=== PATIENT | female | born 1940 | race Caucasian/White ===

== ENCOUNTER 2017-01-07 17:20 | Emergency (ER) | payer MEDICARE ==
[2016-04-10 17:55] VITALS: BMI 23.8
[~2017-01-07 17:20] MED LIST: ADVAIR HFA 230-12 GM INH; ALENDRONATE SOD70 MG PO; ASPIRIN EC325 M1 PO; CATAPRES0.1 MG PO; IPRAT-ALBUT 0.5-3 ML UPD; NIFEDIPINE ER60 MG PO; PAXIL20 MG PO; PLAVIX75 MG; PLAVIX75 MG PO
[2017-01-07 18:28] LABS: BASOPHILS 0 % (0-2); EOSINOPHILS 0 % (0-7); HEMATOCRIT 36.6 % (36.0-48.0); HEMOGLOBIN 11.3 g/dL (12-16); IMMATURE GRANULOCYTES 0.2 % (0-5); LYMPHOCYTES 4.4 % (15-50); MCHC 30.9 g/dL (31.0-37.0); MCV 87.4 fL (80.0-100.0); MEAN PLATELET VOLUME 9.7 fL (7.4-10.4); MONOCYTES 4.4 % (2-11); PLATELET COUNT 183 10x3/uL (130-400); RBC 4.19 10x6/uL (4.00-5.40); RDW 13.1 % (11.5-14.5); WBC 9.6 10x3/uL (4.8-10.8)
[2017-01-07 18:42] LABS: ALBUMIN 4.1 g/dL (3.4-5.0); ALKALINE PHOSPHATASE 93 U/L (46-116); ALT (SGPT) 30 U/L (10-68); BILIRUBIN - TOTAL 0.49 mg/dL (0.2-1.3); CALC OSMOLALITY 279 mosm/kg (275-300); CALCIUM 8.7 mg/dL (8.5-10.1); CHLORIDE - SERUM 94 mmol/L (98-107); CREATININE - SERUM 0.7 mg/dL (0.6-1.3); GLUCOSE 123 mg/dL (74-106); POTASSIUM - SERUM 4.2 mmol/L (3.5-5.1); PROTEIN - SERUM 7.5 g/dL (6.4-8.2); SODIUM 139 mmol/L (136-145); UREA NITROGEN 15 mg/dL (7-18); eGFR NON AFRICAN AMERICAN 86 mL/min (90-120)
[2017-01-07 18:50] LABS: CARBON DIOXIDE 44.3 mmol/L (21.0-32.0)
[2017-01-07 19:44] LABS: APPEARANCE CLEAR (CLEAR); BILIRUBIN NEGATIVE (NEGATIVE); COLOR YELLOW (YELLOW); GLUCOSE NEGATIVE (NEGATIVE); KETONE SMALL mg/dL (NEGATIVE); LEUKOCYTE ESTERASE NEGATIVE (NEGATIVE); NITRITE NEGATIVE (NEGATIVE); PROTEIN 3+ mg/dL (NEGATIVE); UROBILINOGEN NORMAL (NORMAL)
[2017-01-07 19:48] LABS: RED CELLS - URINE 0-5 /hpf (0-5)
[2017-01-07 19:49] LABS: AMORPHOUS SEDIMENT <1+ /lpf (NONE SEEN); BACTERIA FEW /hpf (NONE SEEN); EPITHELIAL CELLS OCC /hpf (0-5); HYALINE CAST RARE /lpf (NONE SEEN)
== END 2017-01-07 21:33 | disposition home or self-care (01) ==
LOC: D.ER 17:20
PROVIDERS: Physician Assistant Medical
DX: J44.1 Chronic obstructive pulmonary disease with (acute) exacerbation (principal); N39.0 Urinary tract infection, site not specified; I10 Essential (primary) hypertension; R06.2 Wheezing; R05 Cough

== ENCOUNTER → 2017-01-10 12:18 | Outpatient (CLI) | payer MEDICARE ==
[2016-04-10 17:55] VITALS: BMI 23.8
== END | disposition home or self-care (01) ==
LOC: D.MRI 12:18
DX: R41.3 Other amnesia (principal)

== ENCOUNTER → 2017-02-05 07:50 | Outpatient (CLI) | payer MEDICARE ==
[2016-04-10 17:55] VITALS: BMI 23.8
--- NOTE | 2017-02-05 09:35 | NUR ---
0975 DAUGHTER VISITING, TIME FRAME FOR NEXT IMAGING GIVEN, CALL LIGHT AT BEDSIDE. TIME FRAME FOR RELEASE GIVEN. LINNETTE SERVED.
== END | disposition home or self-care (01) ==
LOC: D.NM 07:50
DX: R93.8 Abnormal findings on diagnostic imaging of other specified body structures (principal)

== ENCOUNTER 2017-05-13 20:59 | Inpatient (IN) | payer MEDICARE ==
[~2017-05-13] VITALS: Ht 157.5 cm; Wt 44.8 kg
[2017-05-13 21:50] LABS: BASOPHILS 0.1 % (0-2); EOSINOPHILS 0.3 % (0-7); HEMATOCRIT 35.2 % (36.0-48.0); HEMOGLOBIN 10.6 g/dL (12-16); IMMATURE GRANULOCYTES 0.1 % (0-5); LYMPHOCYTES 3.6 % (15-50); MCHC 30.1 g/dL (31.0-37.0); MCV 89.6 fL (80.0-100.0); MEAN PLATELET VOLUME 9.4 fL (7.4-10.4); MONOCYTES 3.9 % (2-11); RBC 3.93 10x6/uL (4.00-5.40); RDW 13.3 % (11.5-14.5); WBC 11.4 10x3/uL (4.8-10.8)
[2017-05-13 21:53] LABS: PLATELET COUNT 250 10x3/uL (130-400)
[2017-05-13 22:04] LABS: ALBUMIN 3.8 g/dL (3.4-5.0); ALKALINE PHOSPHATASE 121 U/L (46-116); ALT (SGPT) 29 U/L (10-68); CALC OSMOLALITY 275 mosm/kg (275-300); CALCIUM 8.8 mg/dL (8.5-10.1); CARBON DIOXIDE 35.5 mmol/L (21.0-32.0); CHLORIDE - SERUM 95 mmol/L (98-107); CREATININE - SERUM 0.6 mg/dL (0.6-1.3); GLUCOSE 130 mg/dL (74-106); POTASSIUM - SERUM 4.2 mmol/L (3.5-5.1); PROTEIN - SERUM 7.1 g/dL (6.4-8.2); SODIUM 137 mmol/L (136-145); UREA NITROGEN 13 mg/dL (7-18); eGFR NON AFRICAN AMERICAN > 90 mL/min (90-120)
[2017-05-14] VITALS (13 sets, daily range): BP systolic 80–202; BP diastolic 57–173; Ht 157.5 cm; Wt 44.8 kg
--- NOTE | 2017-05-14 02:18 | NUR ---
PT RESTING SOUNDLY WITHOUT C/O OR DISTRESS NOTED. CALL LIGHT WITHIN REACH. DENIES ANY C/O PAIN. WILL CONT TO MONITOR.
--- NOTE | 2017-05-14 08:27 | NUR ---
CLEANED OF URINE INCONT. AND REPOSITIONED FOR COMFORT. WILL CONT. PLAN OF CARE.
--- NOTE | 2017-05-14 10:44 | NUR ---
DR CORTES NURSE NOTIFIED OF FALL 2 WEEKS AGO. DAUGHTER STATES SHE IS UNABLE TO BEAR WEIGHT ON HER RIGHT HIP. WILL MONITOR.
--- NOTE | 2017-05-14 13:53 | NUR ---
SOB NOTED. 02 SAT 98%. RESP NOTIFIED FOR TX. WILL MONITOR.
--- NOTE | 2017-05-14 14:10 | NUR ---
UP GIVEN. 02 SAT DROPED TO 62% ON 2LNC. OXIMIZER AT 15L APPLIED. RAPID RESPONCE CALLED. B/P 211/110.
--- NOTE | 2017-05-14 14:33 | NUR ---
NONREBREATHER AT 100% WITH SATS 98%. BLOOD GAS DRAWN. DR. ROMO NOTIFIED. BIPAP ORDERED. EKG, LAB AND CXR DONE. WILL CONT. TO MONITOR.
--- NOTE | 2017-05-14 14:44 | NUR ---
REC,D PT TO ICU, ALL MONITORING EQUIPMENT ATTACHED.
--- NOTE | 2017-05-14 14:49 | NUR ---
TRANSFERED TO ICU. DR. KUO NOTIFIED.
[2017-05-14 15:03] LABS: BASOPHILS 0 % (0-2); EOSINOPHILS 0 % (0-7); HEMATOCRIT 36.3 % (36.0-48.0); HEMOGLOBIN 11.1 g/dL (12-16); IMMATURE GRANULOCYTES 0.3 % (0-5); LYMPHOCYTES 3.2 % (15-50); MCH 27.5 pg (26.0-34.0); MCHC 30.6 g/dL (31.0-37.0); MCV 89.9 fL (80.0-100.0); MEAN PLATELET VOLUME 9.9 fL (7.4-10.4); NEUTROPHILS 94.5 % (40-80); PLATELET COUNT 287 10x3/uL (130-400); RBC 4.04 10x6/uL (4.00-5.40); RDW 13.2 % (11.5-14.5)
[2017-05-14 15:06] LABS: WBC 15.2 10x3/uL (4.8-10.8)
[2017-05-14 15:23] LABS: PRO BNP 678 pg/mL (0-450); TROPONIN-I < 0.017 ng/mL (0.000-0.060)
--- NOTE | 2017-05-14 15:37 | NUR ---
BIPAP PLACED BY RT ON ARRIVAL, FAMILY AT BS, DR MUÑOZ AT BS AND SPOKE TO PT'S DAUGHTER AND GRANDAUGHTER. PT INC OF URINE. LINENS CHANGED AND SAUCEDO CATH PLACED. PT CAROLYN ACTIVITY POORLY. SOB, TACHYCARDIA. DENTURES TAKEN OUT BOTH LOWER AND UPPER AND LABLED AND DAUGHTER TOOK WITH HER. MOUTH CARE DONE. PT RESTING COMFORTABLY ON BIPAP. UA SENT TO LAB. VSS. PT DENIES PAIN.
[2017-05-14 16:04] LABS: APPEARANCE CLEAR (CLEAR); BILIRUBIN NEGATIVE (NEGATIVE); COLOR STRAW (YELLOW); GLUCOSE NEGATIVE (NEGATIVE); KETONE NEGATIVE (NEGATIVE); NITRITE NEGATIVE (NEGATIVE); PROTEIN NEGATIVE (NEGATIVE); SPECIFIC GRAVITY 1.015 (1.005-1.020); UROBILINOGEN NORMAL (NORMAL)
--- NOTE | 2017-05-14 17:02 | NUR ---
PT RESTING QUIETLY ON BIPAP. RESP EASY. VSS.
--- NOTE | 2017-05-14 19:20 | NUR ---
REPORT REC'D AND CARE ASSUMED, REC'D PT ON BIPAP @ 50%, AWAKENS TO VERBAL STIMULI, DISORIENTED TO TIME, REORIENTS EASILY, LEFT FOREARM PIV SALINE LOCKED, BBS WITH CRACKLES AND RALES, SAUCEDO PATENT DRAINING CLEAR YELLOW URINE, BILAT SCDS INTACT AND ON, PT DENIES NEEDS, SR UP X 2, CALL LIGHT IN REACH.
--- NOTE | 2017-05-14 20:45 | NUR ---
EVENING MEDS GIVEN PT REPOSITIONED IN BED FOR COMFORT.
--- NOTE | 2017-05-14 22:30 | NUR ---
PT HAD PULLED GOWN OFF AND PIV OUT, ARM CLEANED AND PRESSURE HELD, PARTIAL BATH AND LINEN CHANGE PROVIDED, VSS, WHEN ASKED ABOUT PULLING IV PT STATES " I DID?"
--- NOTE | 2017-05-14 23:12 | NUR ---
NEW 20GA PIV SITED TO L UPPER ARM X 1 MERYL GRACE.
--- NOTE | 2017-05-14 23:30 | NUR ---
REASSESSMENT COMPLETED, 20GAUGE TO LEFT UPPER ARM PLACED BY JEANNIE TEE ROUTINE LASIX GIVEN AT THIS TIME.
[2017-05-15] VITALS (24 sets, daily range): BP systolic 84–161; BP diastolic 52–102
--- NOTE | 2017-05-15 00:05 | NUR ---
ROUTINE MEDS GIVEN, PT RESTING EYES CLOSED, RESP EVEN AND UNLABORED ON BIPAP AT 18, O2 SAT 100%, WILL CONT TO MONITOR CLOSELY FOR CHANGES.
--- NOTE | 2017-05-15 02:00 | NUR ---
PT REPOSITIONED UP AND ONTO RIGHT SIDE SUPPORTED WITH PILLOW, VSS WILL CONT TO MONITOR FOR CHANGES.
--- NOTE | 2017-05-15 03:45 | NUR ---
RADIOLOGY AT BS, AM CXR DONE, PT REPOSITIONED ONTO BACK, REASSESSMENT COMPLETED, NO CHANGES FROM PREVIOUS ASSESSMENT, PT DENIES NEEDS, CONTINUES AT TIMES TO PULL AT GOWN AND TELEMETRY, WILL CONT TO MONITOR FOR CHANGES.
[2017-05-15 04:36] LABS: BASOPHILS 0 % (0-2); EOSINOPHILS 0 % (0-7); HEMATOCRIT 31.8 % (36.0-48.0); HEMOGLOBIN 9.6 g/dL (12-16); IMMATURE GRANULOCYTES 0.2 % (0-5); LYMPHOCYTES 2.5 % (15-50); MCH 27.6 pg (26.0-34.0); MCHC 30.2 g/dL (31.0-37.0); MCV 91.4 fL (80.0-100.0); MEAN PLATELET VOLUME 9.5 fL (7.4-10.4); MONOCYTES 1.2 % (2-11); NEUTROPHILS 96.1 % (40-80); RBC 3.48 10x6/uL (4.00-5.40); RDW 13.3 % (11.5-14.5)
[2017-05-15 04:37] LABS: WBC 10.6 10x3/uL (4.8-10.8)
[2017-05-15 04:38] LABS: PLATELET COUNT 215 10x3/uL (130-400)
[2017-05-15 04:56] LABS: ALBUMIN 3.3 g/dL (3.4-5.0); ALKALINE PHOSPHATASE 105 U/L (46-116); ALT (SGPT) 25 U/L (10-68); BILIRUBIN - TOTAL 0.22 mg/dL (0.2-1.3); CALC OSMOLALITY 279 mosm/kg (275-300); CALCIUM 8.5 mg/dL (8.5-10.1); CARBON DIOXIDE 39.5 mmol/L (21.0-32.0); CHLORIDE - SERUM 97 mmol/L (98-107); CREATININE - SERUM 0.7 mg/dL (0.6-1.3); GLUCOSE 140 mg/dL (74-106); PHOSPHOROUS 4.2 mg/dL (2.5-4.9); POTASSIUM - SERUM 4.5 mmol/L (3.5-5.1); PROTEIN - SERUM 6.6 g/dL (6.4-8.2); SODIUM 137 mmol/L (136-145); UREA NITROGEN 24 mg/dL (7-18); eGFR NON AFRICAN AMERICAN 86 mL/min (90-120)
--- NOTE | 2017-05-15 05:20 | NUR ---
I AND O COMPLETED, PT REPOSITIONED UP IN BED AND ONTO RIGHT SIDE SUPPORTED WITH PILLOWS, HEELS BRIDGED FOR COMFORT, DENIES FURTHER NEEDS.
--- NOTE | 2017-05-15 05:30 | NUR ---
RT AT BS BIPAP FIO2 DECREASED TO 40%, PT RESTING EYES CLOSED, O2 SAT 98%
--- NOTE | 2017-05-15 06:35 | NUR ---
AM MEDS GIVEN, NO VISITORS IN AT THIS TIME
--- NOTE | 2017-05-15 09:58 | NUR ---
ASSISTED PT WITH MEAL TRAY, BIPAP ON STAND BY AND 02 2LNC. PT DID SWALLOW W/O PROBLEMS, DRANK ENSURE AND ATE 50% OF HER MEAL. DAUGHTER AT BS.
--- NOTE | 2017-05-15 10:50 | NUR ---
PT PLACED BACK ON BIPAP AFTER BREAKFAST BY RT. PT CAROLYN WELL.
--- NOTE | 2017-05-15 15:23 | NUR ---
Sedated. No family present. Unable to assess dc plans/needs at this time.
--- NOTE | 2017-05-15 19:00 | NUR ---
REPORT RECEIVED. SHIF ASSESSMENT COMPLETED PER FLOW SHEET. PT LAYING IN BED AAOX4. ABLE TO FOLLOW COMMANDS. RADIAL AND PEDAL PULSES PALP. TELEMETRY MONITORING HR 84. 2 L O2 VIA NC. SAUCEDO CATHETER TO GRAVITY, SECURED, DRAINING CLEAR YELLOW URINE. BRUISES NOTED TO LT HIP AND ARMS. PT REPORTS SHE HAD A RECENT FALL. LT UPPER ARM PIV, SALINE LOCKED. SEE FLOW SHEET FOR COMPLETE ASSESSMENT. PT DODIE NEEDS AT THIS TIME. WILL CONTINUE TO MONITOR.
--- NOTE | 2017-05-15 19:20 | NUR ---
PT SCREAMING "HELP" SOON I WALKED IN ROOM, SHE STATED "HELP I CAN'T BRETHE" OXYGEN SATURATION DROPPED TO 88%. PT PUT ON BIPAP PER RESPIRATORY AND SAT PT UP IN BED. O2 SATURATION INCREASED TO 96%. STAYED WITH PT UNTIL SHE STATED SHE WAS OK AND HAD NO TROUBLE BREATHING. CALL LIGHT WITHIN REACH. BED IN LOWEST POSITION. WILL CONTINUE TO MONITOR.
--- NOTE | 2017-05-15 20:30 | NUR ---
DAUGHTER OLGA AND HER AT BEDSIDE. QUESTIONS ANSWERED.
--- NOTE | 2017-05-15 20:40 | NUR ---
PT SPA CONCIERGE LIGHT, AGGRAVATED AND VERBALLY ABUSIVE REQUESTING BIPAP OFF, EXPLAINED TO HER THE IMPORTANCE OF KEEPING HER BIPAP ON, SHE VERBALIZED UNDERSTANDING BUT STATED "I HAVE BEEN ON THIS THING FOR 4 HRS ALREADY AND I AM TIRED OF IT" TOOK BIPAP OFF AND PUT HER ON 2 L O2 VIA NC, O2 SATURATION IS AT 96%. TEACHING PROVIDED TO PT THAT IF O2 SATURATION DROPPED OR SHE HAD DIFFICULTY BREATHING, BIPAP WOULD NEED TO BE PUT BACK ON. PT VERBALIZED UNDERSTANDING AND IS NOW CALM AND COOPERATIVE. CALL LIGHT WITHIN REACH. WILL CONTINUE TO MONITOR.
--- NOTE | 2017-05-15 21:00 | NUR ---
PT LAYING IN BED AWAKE, NO DISTRESS NOTED. WILL CONTINUE TO MONITOR.
--- NOTE | 2017-05-15 23:05 | NUR ---
REASSESSMENT COMPLETED PER FLOW SHEE, SEE FOR DETAILS. NO ACUTE CHANGES NOTED. PT CALM AND COOPERATIVE AT THIS TIME. AAOX4. DENIES NEEDS. TEACHING PROVIDED ON SCHEDULED SURGERY TOMORROW AND THE NEED TO BE NPO AFTER MIDNIGHT. PT VERBALIZED UNDERSTANDING. DENIES NEEDS AT THIS TIME. CALL LIGHT WITHIN REACH. ROOM LIGHT AND TV ON PER REQUEST. WILL CONTINUE TO MONITOR.
[2017-05-16] VITALS (23 sets, daily range): BP systolic 103–188; BP diastolic 60–95
--- NOTE | 2017-05-16 01:00 | NUR ---
PT LAYING IN BED RESTING, WATCHING TV, DENIES NEEDS. WILL CONTINUE TO MONITOR.
--- NOTE | 2017-05-16 03:10 | NUR ---
REASSESSMENT COMPLETED PER FLOW SHEET, NO ACUTE CHANGES FROM PREVIOUS, SEE FLOW SHEET FOR DETAILS. PT DENIES NEEDS AT THIS TIME. PT IS CALM AND COOPERATIVE. CALL LIGHT WITHIN REACH. BED IN LOWEST POSITION. WILL CONTINUE TO MONITOR.
[2017-05-16 04:17] LABS: BASOPHILS 0 % (0-2); EOSINOPHILS 0 % (0-7); HEMATOCRIT 33.1 % (36.0-48.0); IMMATURE GRANULOCYTES 0.2 % (0-5); MCH 27.3 pg (26.0-34.0); MCHC 30.2 g/dL (31.0-37.0); MCV 90.4 fL (80.0-100.0); MEAN PLATELET VOLUME 9.8 fL (7.4-10.4); MONOCYTES 4.9 % (2-11); NEUTROPHILS 91.9 % (40-80); PLATELET COUNT 321 10x3/uL (130-400); RBC 3.66 10x6/uL (4.00-5.40); RDW 13.4 % (11.5-14.5); WBC 9.7 10x3/uL (4.8-10.8)
[2017-05-16 04:45] LABS: ALBUMIN 3.4 g/dL (3.4-5.0); ANION GAP 6.6 mmol/L (8-16); BILIRUBIN - TOTAL 0.15 mg/dL (0.2-1.3); CALCIUM 8.8 mg/dL (8.5-10.1); CARBON DIOXIDE 39.4 mmol/L (21.0-32.0); MAGNESIUM - SERUM 2.1 mg/dL (1.8-2.4); PROTEIN - SERUM 6.9 g/dL (6.4-8.2)
[2017-05-16 04:54] LABS: CREATININE - SERUM 0.9 mg/dL (0.6-1.3); PHOSPHOROUS 2.2 mg/dL (2.5-4.9)
--- NOTE | 2017-05-16 05:00 | NUR ---
PT RESTING IN BED, EYES CLOSED. NO ACUTE DISTRESS NOTED. WILL CONTINUE TO MONITOR.
--- NOTE | 2017-05-16 05:41 | NUR ---
MEDS ADMINISTERED PER EMAR, SEE FOR DETAILS. PT AWAKE WATCHING TV. DENIES NEEDS. WILL CONTINUE TO MONITOR. CALL LIGHT WITHIN REACH. BED IN LOWEST POSITION.
--- NOTE | 2017-05-16 07:57 | NUR ---
DR CRUZ HAS BEEN BY TO SEE PATIENT. WANTS ADDITIONAL CT OF HIP PERFORMED. MAY NEED TO CHANGE PROCEDURE FOR HIP. ASKS TO WAIT TO GET CONSENTS UNTIL HE SEES IMAGING. EXPLAINED TO HIM FAMILY CONCERNED ABOUT LEFT FOOT/ANKLE. HE EXAMINED THE PATIENT ANKLE AT THAT TIME. NO C/O PAIN, NO SWELLING, NO DIFFICULTY WITH RANGE OF MOTION.
--- NOTE | 2017-05-16 09:00 | NUR ---
PT ASSISTED ON TO BEDPAN. NEEDS TO HAVE BOWEL MOVEMENT.
--- NOTE | 2017-05-16 09:20 | NUR ---
FAMILY AT BEDSIDE. NO BOWEL MOVEMENT YET. DOES NOT WANT GARCIA MOVED.
--- NOTE | 2017-05-16 09:36 | NUR ---
PT CLEANED UP FROM LARGE BOWEL MOVEMENT. REPOSITIONED AND USED PILLOWS FOR PROPPING BETWEEN LEGS.
--- NOTE | 2017-05-16 09:47 | NUR ---
Nutrition follow-up: Pt is now NPO for surgery PO intake has been ~75% of meals +BM Wt: 104# Labs reviewed RDN following.
--- NOTE | 2017-05-16 12:47 | NUR ---
ANESTHESIA OVER TO SEE PATIENT. ASKED IF COULD HAVE BREATHING TREATMENT. SPOKE WITH DR MUÑOZ. REVIEWED TIME OF LAST TREATMENT. GIVES OK TO GIVE TREATMENT EARLY.
--- NOTE | 2017-05-16 13:08 | NUR ---
PT OFF UNIT TO Anthony
--- NOTE | 2017-05-16 17:05 | NUR ---
PT RETURNED TO ROOM FROM O.R. PT RESTING AT THIS TIME. PLACED ON MONITORING. TEMP 98.9. POSITIONED ON RIGHT SIDE, ICE TO LEFT HIP. DRESSING MARKED FOR BLEEDING.
--- NOTE | 2017-05-16 19:00 | NUR ---
REPORT RECEIVED, SHIFT ASSESSMENT COMPLETED PER FLOW SHEET, SEE FOR DETAILS. PT LAYING IN BED WATCHING TV. LT FOREARM PIV INFUSING NS AT 10 MLS/HR. SCD'S ON. ABLE TO FOLLOW COMMANDS. LT HIP DRESSINGS INTACT. DENIES NEEDS. CALL LIGHT WITHIN REACH. BED IN LOWEST POSITION. WILL CONTINUE TO MONITOR.
--- NOTE | 2017-05-16 19:00 | NUR ---
REPORT RECEIVED. SHIFT ASSESSMENT COMPLETED PER FLOW SHEET, SEE FOR DETAILS. PT LAYING IN BED RESTING. DRESSINGS NOTED TO LT HIP AND LT UPPER SIDE OF KNEE. TELEMETRY MONITORING HR 77. 3L O2 VIA NC. SAUCEDO CATHETER TO GRAVITY, SECURED, DRAINING YELLOW URINE. LT UPPER ARM PIV, SALINE LOCKED. RT HAND PIV, PATENT. SEE FLOW SHEET FOR DETAILS. BED IN LOWEST POSITION. CALL LIGHT WITHIN REACH. WILL CONTINUE TO MONITOR.
--- NOTE | 2017-05-16 20:30 | NUR ---
DAUGHTER AND HER AT BEDSIDE. QUESTIONS ANSWERED, UPDATE GIVEN.
--- NOTE | 2017-05-16 22:30 | NUR ---
DR. KUO CALLED FOR SBP 180. DR. KRAUSE IS [employer] LAW ASSOCIATE, WILL WAIT FOR CALL BACK.
--- NOTE | 2017-05-16 22:34 | NUR ---
DR. KRAUSE CALLED BACK, DISCUSSED BP CONCERNS. NEW ORDERS RECEIVED. SEE EMAR FOR DETAILS.
--- NOTE | 2017-05-16 22:41 | NUR ---
PHARMACY NOT HERE, UNABLE TO OBTAIN HYDRALAZINE. DIE FORGER CALLED, BUT PHONE LINE IS BUSY. WILL KEEP TRYING TO GET IN CONTACT.
--- NOTE | 2017-05-16 22:47 | NUR ---
[employer] NOTIFIED OF HYDRALAZINE NEED. WILL WAIT FOR AVAILABILITY.
--- NOTE | 2017-05-16 22:50 | NUR ---
PT PULLING BIPAP OFF, MOVING AROUND ATTEMPTING TO SIT UP IN BED, BLEEDING NOTED TO RT HAND PIV, IV REMOVED AND HAND PRESSURE APPLIED TO SITE, BLEEDING STOPPED SHORTLY AFTER AND DRESSING WAS PLACED AND TAPED. TEACHING PROVIDED ON THE NEED TO STAY ON BIPAP AND PT CALMED DOWN AFTER AND NO LONGER ATTEMPTED TO PULL ON BIPAP. COMPLETE BED BATH GIVEN. COMPLETE BED LINEN CHANGE. [facility] GOWN PROVIDED. IV FLUIDS CHANGED TO LT UPPER ARM PIV. PT REPOSITIONED FOR COMFORT. WILL CONTINUE TO MONITOR.
--- NOTE | 2017-05-16 23:05 | NUR ---
REASSESSMENT COMPLETED PER FLOW SHEET, SEE FOR DETAILS. WILL CONTINUE TO MONITOR.
[2017-05-17] VITALS (13 sets, daily range): BP systolic 103–163; BP diastolic 56–89
--- NOTE | 2017-05-17 00:47 | OP ---
PATIENT NAME: SAIDA BOLIVAR MEDICAL RECORD: [id number] :41 LOCATION:[facility] [id number] ADMISSION DATE:05/13/17 SURGEON: AMINTA CRUZ, DATE OF OPERATION: 05/16/2017 PREOPERATIVE DIAGNOSIS: Left hip intramedullary nailing. POSTOPERATIVE DIAGNOSIS: Left hip intertrochanteric fracture. INDICATIONS: Ms. Bolivar is a 76-year-old female who fell approximately 2 weeks ago and has not been bearing weight on her left leg. Once this was done, she has been staying with her daughter, she started to get short of breath as well, and she was brought to the hospital. X-rays and CT were done showing left intertrochanteric fracture is nondisplaced. There was some displacement of the greater trochanter, this was discussed with her family and need for operative fixation if she wanted to weightbear as the fracture could displace if she were to bear weight on it. They were in agreeance with the procedure. DESCRIPTION OF PROCEDURE: The patient was taken to the operative suite, laid in supine position, given 1 gram of Ancef. The timeout was performed, everyone was in agreement of correct side, correct patient, and correct procedure. The patient was then intubated and sedated and is moved over to the fracture table. The left leg was put in the fracture table boot and the right leg was taped to the same arm of the fracture table as the left leg with a pillow for padding. The other bony prominences were well padded. The left leg was then prepped and draped in sterile fashion. The procedure commenced first with the incision being made just proximal to the greater trochanter. Careful dissection was made down the greater trochanter and starting point was made. The entry wire was put in and then the entry reamer was used to open the trochanter and into the canal. Once this was done, reaming commenced up to a 12.5 and 11 nail was put in. We measured a 360 mm nail. After this was done, the nail was put into the patient and once in good position, the lag screw sleeve was put on the skin. An incision was made where the lag screw would go. The guide sleeve was then put up against the femur and a guidewire was used and put into the correct position into the femoral head. Once this was seen to be in good position, it was measured and seen to be a 95. It was then overdrilled and 95 lag screw was put in by 10.5 mm x 95 mm lag screw. This was an [employer] nail by [employer]. The anti-rotation screw was then placed as well and a 75 drill sleeve was used and measured to be 75 with a drill bit. The 75 screw was put in. Once this was done, the nail was locked proximally. The screws were locked into place and then distally, we got perfect circles and 1 distal screw was placed, size was a 42 mm x 5.0 screw placed in the distal hole. After this was done, x-rays were taken to confirm good nail placement. Both AP and lateral and the incisions were irrigated thoroughly with saline and the IT band was closed with 2 proximal incisions with #1 Vicryl and then the skin was closed with 2-0 Vicryl and 4-0 Monocryl was run on the skin. The distal incision was closed with 2-0 Vicryl and then 4-0 Monocryl in the skin. Adaptic, Telfa, and Tegaderms were then placed over each of the incisions. The patient was taken off the fracture table and taken to recovery. TRANSINT:[id number] Voice Confirmation ID: [id number] DOCUMENT ID: [id number] OPERATIVE REPORT [id number] SAIDA BOLIVAR MICHAEL D, DO at 0047 CC: [id number] DICTATION DATE: 05/16/17 1535 ASSOCIATE THEATRE PROFESSOR: 05/16/17 1703 ADM IN [facility] [address] [id number]
--- NOTE | 2017-05-17 01:00 | NUR ---
PT IS RESTING IN CALMLY IN BED ON BIPAP AT 30% WILL CONTINUE TO MONITOR.
--- NOTE | 2017-05-17 03:30 | NUR ---
REASSESSMENT COMPLETED PER FLOW SHEET, SEE FOR DETAILS. PT DENIES NEEDS. BED IN LOWEST POSITION. WILL CONTINUE TO MONITOR.
[2017-05-17 04:08] LABS: BASOPHILS 0 % (0-2); EOSINOPHILS 0 % (0-7); HEMATOCRIT 29.6 % (36.0-48.0); HEMOGLOBIN 8.9 g/dL (12-16); IMMATURE GRANULOCYTES 0.3 % (0-5); LYMPHOCYTES 2.5 % (15-50); MCH 27.4 pg (26.0-34.0); MCHC 30.1 g/dL (31.0-37.0); MCV 91.1 fL (80.0-100.0); NEUTROPHILS 94.2 % (40-80); PLATELET COUNT 301 10x3/uL (130-400); RBC 3.25 10x6/uL (4.00-5.40); RDW 13.5 % (11.5-14.5); WBC 11.4 10x3/uL (4.8-10.8)
[2017-05-17 04:32] LABS: ALBUMIN 3.2 g/dL (3.4-5.0); ANION GAP 7.6 mmol/L (8-16); BILIRUBIN - TOTAL 0.2 mg/dL (0.2-1.3); CALCIUM 8.1 mg/dL (8.5-10.1); CARBON DIOXIDE 38.1 mmol/L (21.0-32.0); PROTEIN - SERUM 6.1 g/dL (6.4-8.2)
[2017-05-17 04:34] LABS: POTASSIUM - SERUM 4.7 mmol/L (3.5-5.1)
--- NOTE | 2017-05-17 05:00 | NUR ---
PT RESTING IN BED, NO ACUTE DISTRESS NOTED AT THIS TIME. WILL CONTINUE TO MONITOR.
--- NOTE | 2017-05-17 07:00 | NUR ---
REPORT RECIEVED FROM OFF GOING NURSE. SEE ASSESSMENT IN FLOW SHEET. PT ALERT AND ORIENTED TO PERSON AND PLACE ONLY. LEFT HIP DRESSING C/D/I. DENIES PAIN VERBALLY. CALL LIGHT IN REACH. DR KUO AT BEDSIDE. NEW ORDRES FOR PT TO TRANSFER TO MED SURG. WILL CONT POC
--- NOTE | 2017-05-17 07:28 | NUR ---
Nutrition follow-up: Pt s/p hip repair 05/16 Diet: Regular as tolerated Wt: 98# Labs reviewed Will provide food choices with selective menus and honor food preferences. RDN will order Ensure BID.
--- NOTE | 2017-05-17 08:30 | NUR ---
DR CRUZ AT BED SIDE ASSESSED PT. NO NEW ORDERS. WILL CONT POC
--- NOTE | 2017-05-17 11:00 | NUR ---
PHYS THERP. ASSISTED PT WITH TRANSFER TO CHAIR. PT TOLERATED TRANSFER WELL. DENIES PAIN. UP IN CHAIR WATCHING TV. CALL LIGHT IN REACH. WAITING FOR ROOM ON MED SURG.
--- NOTE | 2017-05-17 12:30 | NUR ---
DORIAN RICO ASSISTED PT BACK INTO BED. VSS. WAITING FOR MED SURG ROOM.
[2017-05-17 15:05] LABS: HEMATOCRIT 28.2 % (36.0-48.0); HEMOGLOBIN 8.4 g/dL (12-16)
--- NOTE | 2017-05-17 15:30 | NUR ---
PT RESTING WATCHING TV WITH NO S/SX OF DISTRESS/DISOCMFORT NOTED. BREATHING NORMAL AND UNLABORD. DENIES PAIN. CALL LIGHT IN REACH. WILL CONT POC
--- NOTE | 2017-05-17 18:24 | NUR ---
PT PULLED OUT IV TO LEFT UPPER ARM. NEW 20 GAUGE IV STARTED IN LEFT LOWER ARM. PATENT. NO S/SSX OF INFILTRATION. THE IV THAT WAS PULLED OUT, THE CATHETER TIP IS INTACT.
--- NOTE | 2017-05-17 19:47 | NUR ---
REPORT GIVEN TO ON COMING RN. VSS WILL CONT POC.
--- NOTE | 2017-05-17 20:17 | NUR ---
FAMILY AT BEDSIDE, UPDATE GIVEN, QUESTIONS ANSWERED.
--- NOTE | 2017-05-17 21:00 | NUR ---
PT RESTING IN BED WATCHING TV. NO DISTRESS NOTED. DENIES NEEDS. WILL CONTINUE TO MONITOR.
--- NOTE | 2017-05-17 21:40 | NUR ---
RECEIVED REPORT. PT ARRIVED TO FLOOR FROM ICU. PT ON 3L/NC. EXP WHEEZES HEARD ON AUSCULTATION. COMPLETE ASSESSMENT PER FLOW-SHEET. PT SITTING UP IN BED EATING SNACK AND WATCHING TV. NO OTHER NEEDS. WILL CONTINUE TO MONITOR. BED LOW. CALL LIGHT IN REACH. BED ALARM ON.
--- NOTE | 2017-05-17 21:40 | NUR ---
REPORT CALLED TO MED SURGE UNIT NURSE FOR TRANSFER
--- NOTE | 2017-05-17 21:50 | NUR ---
PT TRANSFERRED TO MED SURG UNIT
[2017-05-18 04:00] VITALS: BP 137/57
[2017-05-18 04:04] LABS: BASOPHILS 0 % (0-2); EOSINOPHILS 0 % (0-7); HEMATOCRIT 27.3 % (36.0-48.0); HEMOGLOBIN 8.2 g/dL (12-16); IMMATURE GRANULOCYTES 0.2 % (0-5); LYMPHOCYTES 3.7 % (15-50); MCH 27.2 pg (26.0-34.0); MCV 90.4 fL (80.0-100.0); MEAN PLATELET VOLUME 9.6 fL (7.4-10.4); MONOCYTES 3.7 % (2-11); NEUTROPHILS 92.4 % (40-80); RBC 3.02 10x6/uL (4.00-5.40); RDW 13.2 % (11.5-14.5)
[2017-05-18 04:05] LABS: PLATELET COUNT 224 10x3/uL (130-400); WBC 6.5 10x3/uL (4.8-10.8)
[2017-05-18 04:26] LABS: ALBUMIN 3.1 g/dL (3.4-5.0); ALKALINE PHOSPHATASE 91 U/L (46-116); BILIRUBIN - TOTAL 0.18 mg/dL (0.2-1.3); CALC OSMOLALITY 287 mosm/kg (275-300); CALCIUM 8.1 mg/dL (8.5-10.1); CARBON DIOXIDE 39.1 mmol/L (21.0-32.0); CHLORIDE - SERUM 97 mmol/L (98-107); GLUCOSE 142 mg/dL (74-106); POTASSIUM - SERUM 4.5 mmol/L (3.5-5.1); PROTEIN - SERUM 6.1 g/dL (6.4-8.2); SODIUM 141 mmol/L (136-145); UREA NITROGEN 27 mg/dL (7-18)
[2017-05-18 04:27] LABS: ALT (SGPT) 25 U/L (10-68); CREATININE - SERUM 0.6 mg/dL (0.6-1.3); eGFR NON AFRICAN AMERICAN > 90 mL/min (90-120)
[2017-05-18 08:10] VITALS: BP 125/46
--- NOTE | 2017-05-18 08:30 | NUR ---
ASSESSMENT COMPLETE. SL TO L FA. SAUCEDO PATENT DRAINING YELLOW URINE. O2 3L NC IN USE. DRESSING TO L HIP INCISONS X2 INTACT. SCD'S IN USE TO BILAT LEGS. ORIENTED TO SELF ONLY. DENIES ANY COMPLAINTS OF PAIN AT THIS TIME.
--- NOTE | 2017-05-18 12:20 | NUR ---
Patient Name: SAIDA BOLIVAR Admission Status: ER Accout number: [id number] Admission Date: 05-13-2017 : 1941 Admission Diagnosis:SHORTNESS OF BREATH Attending: BECKY MARTINS Current LOS: 5 Anticipated DC Date: Planned Disposition: Inpatient Rehab Primary Insurance: [employer] CHOICE PPO [facility] Discharge Planning Comments: CM SPOKE WITH CHRISS (DAUGHTER) TO ASSESS DISCHARGE PLANNING . PATIENT LIVES WITH DAUGHTER WHERE SHE IS PARTIAL DEPENDENT, JANNETH HELPS HER WITH HER MEDICATIONS AND PREPARING FOOD. PATIENT HAS A BEDSIDE COMMODE, WALKER, SHOWER CHAIR, NEBULIZER, O2 WITH [facility]. JANNETH WOULD LIKE HER MOM TO INPATIENT REHAB HERE AT [facility]. CM WILL CONTINUE TO MONITOR AND ASSIST WITH DISCHARGE PLANNING NEEDS. PCP: ELIEZER KEL[facility]RES DYLONRMFABIAN AMADOUNicole HAILE ([phone]) Occupational Hygienist: Angie Harding * Is the patient Alert and Oriented? Yes 0 * PCP BECKY MARTINS 0 * [facility] * Preadmission Environment Home with Family 0 * ADLs Partial Dependent 0 * Partial ADLs (Assistance needed) Eating Medication Management 0 * Equipment Bedside Commode Nebulizer Oxygen Rolling Walker Shower Chair Tub Bench Walker 0 * Other Equipment O2 FROM [facility] 0 * List name and contact numbers for known caregivers / representatives who currently or will assist patient after discharge: MELANITERE HAILE (DAUGHTER) 0 * Community resources currently utilized None 0 * Additional services required to return to the preadmission environment? Yes 0 * Can the patient safely return to the preadmission environment? Yes 0 * Has this patient been hospitalized within the prior 30 days at any hospital? No 0 Grand Total: 0
[2017-05-18 12:53] VITALS: BP 134/49
--- NOTE | 2017-05-18 13:47 | NUR ---
DRESSINGS X 3 TO L HIP CHANGED. INCISIONS HEALING WELL. DENIES ANY NEEDS AT THIS TIME. BED ALARM IN USE.
--- NOTE | 2017-05-18 14:37 | NUR ---
COMPLAINING OF SHORTNESS OF BREATH. DIAPHORETIC. RESPIRATORY THERAPIST AT BEDSIDE. BIPAP APPLIED. O2 SAT 95%. ATIVAN 1 MG GIVEN SLOW IVP.
--- NOTE | 2017-05-18 15:35 | NUR ---
RESTING QUIETLY WITH EYES CLOSED. RESP EVEN,NONLABORED. BIPAP IN USE.
[2017-05-18 15:50] VITALS: BP 99/42
--- NOTE | 2017-05-18 17:11 | NUR ---
OT NOTE: PT COMPLETED SIMPLE HYGIENE TASK WITH MOD A. THANK YOU, REMI CARDENAS/Nixon
--- NOTE | 2017-05-18 18:27 | NUR ---
CONTINUING RESTING QUIETLY WITH EYES CLOSED. BIPAP IN USE.
--- NOTE | 2017-05-18 19:30 | NUR ---
RECEIVED CARE FROM DAY NURSE. PT LYING IN BED WITH BI-PAP IN PLACE. COMPANY AT SIDE. REPORTS NO NEEDS. CALL LIGHT AT SIDE.
[2017-05-18 20:00] VITALS: BP 143/59
[2017-05-19] VITALS: BP 150/62
[2017-05-19 04:00] VITALS: BP 125/58
[2017-05-19 04:41] LABS: BASOPHILS 0 % (0-2); EOSINOPHILS 0 % (0-7); HEMATOCRIT 26.9 % (36.0-48.0); IMMATURE GRANULOCYTES 0.3 % (0-5); LYMPHOCYTES 5.6 % (15-50); MCH 27.1 pg (26.0-34.0); MCHC 29.7 g/dL (31.0-37.0); MCV 91.2 fL (80.0-100.0); MEAN PLATELET VOLUME 10.4 fL (7.4-10.4); MONOCYTES 3.4 % (2-11); NEUTROPHILS 90.7 % (40-80); PLATELET COUNT 183 10x3/uL (130-400); RBC 2.95 10x6/uL (4.00-5.40); RDW 13.3 % (11.5-14.5); WBC 5.9 10x3/uL (4.8-10.8)
--- NOTE | 2017-05-19 04:58 | NUR ---
ASSESSED, PT IS ASLEEP WITH O2 AT 3 LITERS PER N/C AND CPAP OFF. SHE IS USING HER ABD MUSCLES WITH RESPIRATIONS. SCD'S IN PLACE. THE BED IS LOW, RAILS UP X'S 2 WITH THE CALL LIGHT AT HAND.
[2017-05-19 05:10] LABS: ALBUMIN 2.9 g/dL (3.4-5.0); ALKALINE PHOSPHATASE 87 U/L (46-116); ALT (SGPT) 26 U/L (10-68); CALC OSMOLALITY 286 mosm/kg (275-300); CALCIUM 8.4 mg/dL (8.5-10.1); CARBON DIOXIDE 39.3 mmol/L (21.0-32.0); CHLORIDE - SERUM 101 mmol/L (98-107); CREATININE - SERUM 0.7 mg/dL (0.6-1.3); GLUCOSE 136 mg/dL (74-106); POTASSIUM - SERUM 4.7 mmol/L (3.5-5.1); PROTEIN - SERUM 5.7 g/dL (6.4-8.2); SODIUM 141 mmol/L (136-145); UREA NITROGEN 25 mg/dL (7-18); eGFR NON AFRICAN AMERICAN 86 mL/min (90-120)
--- NOTE | 2017-05-19 07:00 | NUR ---
REPORT RECIEVED, ASSUMED CARE OF PT. RESTING WITH EYES SHUT, EASILY AROUSED. NO NEEDS VOICED AT THIS TIME. BED IN LOWEST POSITION, SIDE RAILS UP X 2, CALL LIGHT WITHIN REACH.
[2017-05-19 08:45] VITALS: BP 157/56
[2017-05-19 13:33] VITALS: BP 111/65; BP 171/76
[2017-05-19 16:45] VITALS: BP 138/50
--- NOTE | 2017-05-19 19:15 | NUR ---
RECEIVED CARE FROM DAY NURSE. PT IN HIGH FOWLERS POSITION WITH BI-PAP IN PLACE. REPORTS NO NEEDS. CALL LIGHT AT SIDE. IV SL TO LEFT FA.
[2017-05-19 20:00] VITALS: BP 131/45
[2017-05-20] VITALS (23 sets, daily range): BP systolic 120–211; BP diastolic 50–96
[2017-05-20 04:56] LABS: BASOPHILS 0 % (0-2); EOSINOPHILS 0 % (0-7); HEMATOCRIT 25.1 % (36.0-48.0); IMMATURE GRANULOCYTES 0.2 % (0-5); LYMPHOCYTES 5.7 % (15-50); MCH 27.3 pg (26.0-34.0); MCHC 29.9 g/dL (31.0-37.0); MCV 91.3 fL (80.0-100.0); MEAN PLATELET VOLUME 9.7 fL (7.4-10.4); MONOCYTES 2.4 % (2-11); NEUTROPHILS 91.7 % (40-80); PLATELET COUNT 229 10x3/uL (130-400); RBC 2.75 10x6/uL (4.00-5.40); RDW 13.6 % (11.5-14.5); WBC 6.2 10x3/uL (4.8-10.8)
[2017-05-20 04:57] LABS: HEMOGLOBIN 7.5 g/dL (12-16)
--- NOTE | 2017-05-20 05:15 | NUR ---
PT SLEEPING. BIPAP IN PLACE. RESP EVEN. NO DISTRESS NOTED. CONTINUE FAMILY PARTNER'S PLAN OF CARE.
[2017-05-20 05:33] LABS: CALC OSMOLALITY 286 mosm/kg (275-300); CALCIUM 8.6 mg/dL (8.5-10.1); CARBON DIOXIDE 37.8 mmol/L (21.0-32.0); CHLORIDE - SERUM 100 mmol/L (98-107); CREATININE - SERUM 0.7 mg/dL (0.6-1.3); GLUCOSE 145 mg/dL (74-106); POTASSIUM - SERUM 4.6 mmol/L (3.5-5.1); SODIUM 139 mmol/L (136-145); UREA NITROGEN 29 mg/dL (7-18); eGFR NON AFRICAN AMERICAN 86 mL/min (90-120)
--- NOTE | 2017-05-20 07:30 | NUR ---
AWAKE AND ALERT. ORIENTED TO SELF. NO C/O AT THIS TIME. BIPAP REMOVED AND O2 AT 3L NC IN PLACE. LUNGS HAVE WHEEZES THROUGHOUT LUNG ESCOBAR. OCCASSIONAL DRY COUGH NOTED. SKIN IS INTACT WITHOUT REDNESS EXSEPT INCISION TO LEFT HIP WHICH HAS A DRY INTACT DRESSING IN PLACE. SL TO LEFT FOREARM IS PATENT WITHOUT REDNESS AT INSERTION SITE. DENIES NEEDS. SAUCEDO PATENT WITH CLEAR YELLOW URINE.
--- NOTE | 2017-05-20 11:36 | NUR ---
FIRST UNIT PRBC UP. VSS. DENIES NEEDS. REPOSITIONED IN BED FOR COMFORT.
--- NOTE | 2017-05-20 12:37 | NUR ---
IESHA RECEIVED MD ORDER FOR REHAB PRESCREENING. PT/ OT EVALUATIONS HAVE BEEN COMPLETED. AN ORDER FOR REHAB PRESCREENING NOTED 05/18/17. THIS PATIENT HAS [employer] CHOICE PPO M[employer] FOR AN INSURER. SHE WILL THEREFORE NEED AN INSURANCE AUTHORIZATION FOR REHAB. [employer] WILL BE AVAILBALE TO START THE PROCESS ON SUNDAY. RAIL ENGINEER TO NOTIFY ACUTE REHAB CHILDREN LIBRARIAN REGARDING CONSULT/ ORDER.
--- NOTE | 2017-05-20 14:26 | NUR ---
FIRST UNIT PRBC COMPLETED WITHOUT SIGNS OF REACTIONS. VSS.
--- NOTE | 2017-05-20 15:40 | NUR ---
SECOND UNIT PRBC UP AT THIS TIME. VSS.
--- NOTE | 2017-05-20 19:15 | NUR ---
RECEIVED CARE FROM DAY NURSE. PT IN BED WITH BI-PAP IN PLACE. PT JUST HAD LARGE BM. IV SL TO LEFT FA. NO NEEDS VOICED AT THIS TIME. CALL LIGHT AT SIDE. SAUCEDO TO GRAVITY.
--- NOTE | 2017-05-21 03:13 | NUR ---
RESTING QUITLY WITH EYES CLOSED. NC IN PLACE AT 3L. O2 SAT 99%. SAUCEDO TO GRAVITY. NO DISTRESS NOTED.
[2017-05-21 04:00] VITALS: BP 122/50
[2017-05-21 05:47] LABS: BASOPHILS 0 % (0-2); EOSINOPHILS 2.6 % (0-7); HEMATOCRIT 33.3 % (36.0-48.0); HEMOGLOBIN 10.6 g/dL (12-16); IMMATURE GRANULOCYTES 0.5 % (0-5); LYMPHOCYTES 18.6 % (15-50); MCHC 31.8 g/dL (31.0-37.0); MCV 87.9 fL (80.0-100.0); MEAN PLATELET VOLUME 9.7 fL (7.4-10.4); MONOCYTES 8.6 % (2-11); NEUTROPHILS 69.7 % (40-80); PLATELET COUNT 205 10x3/uL (130-400); RBC 3.79 10x6/uL (4.00-5.40); RDW 14.2 % (11.5-14.5); WBC 7.3 10x3/uL (4.8-10.8)
[2017-05-21 06:06] LABS: CALCIUM 8.2 mg/dL (8.5-10.1); CARBON DIOXIDE 39.7 mmol/L (21.0-32.0); CHLORIDE - SERUM 98 mmol/L (98-107); CREATININE - SERUM 0.6 mg/dL (0.6-1.3); MAGNESIUM - SERUM 1.8 mg/dL (1.8-2.4); PHOSPHOROUS 2.9 mg/dL (2.5-4.9); SODIUM 140 mmol/L (136-145); UREA NITROGEN 28 mg/dL (7-18); eGFR NON AFRICAN AMERICAN > 90 mL/min (90-120)
[2017-05-21 06:07] LABS: CALC OSMOLALITY 283 mosm/kg (275-300); GLUCOSE 79 mg/dL (74-106); POTASSIUM - SERUM 3.9 mmol/L (3.5-5.1)
--- NOTE | 2017-05-21 07:22 | NUR ---
SAUCEDO REMOVED PER ORDER, TIP INTACT.
--- NOTE | 2017-05-21 08:00 | NUR ---
REC'D IN BED AWAKE AND ALERT. RESP EVEN AND UNLABORED WITH NO DISTRESS NOTED. CAN EXPRESS NEEDS AND WANTS. NO C/O NOTED OR VOICE. ASSESSMENT COMPLETED. C/L IN REACH AT BEDSIDE.
[2017-05-21 09:57] VITALS: BP 157/52
[2017-05-21 12:57] VITALS: BP 152/76
--- NOTE | 2017-05-21 15:23 | NUR ---
SPOKE WITH BOSTON FROM [facility] ACUTE REHAB. SHE HAS SUBMITTED THE PAPERWORK TO REQUEST AUTH FOR ACUTE REHAB TO [facility]. AWAIT AUTHORIZATION.
--- NOTE | 2017-05-21 16:04 | NUR ---
Recie[facility] a [facility] from [facility]. The [facility] hospital medical assistant has denied acute rehab for this patient stating her needs can be met at a skilled facility. If the physician disagrees a peer to peer between the attending and the Mitzi MD can be arranged by calling Ada at [phone] x [phone] within the next 5 business days. The CM Rosie Montes and the patient's daughter Elaina have been made aware. Zulma Jimenez RN Clinical Liaison, Rehab
[2017-05-21 16:31] VITALS: BP 158/74
--- NOTE | 2017-05-21 18:00 | NUR ---
PATIENT SITTING UP IN BED WITH EYES OPEN AT THIS TIME. NO COMPLAINTS. IV INTACT. CALL LIGHT WITHIN REACH.
[2017-05-21 20:00] VITALS: BP 142/51
[2017-05-22] VITALS: BP 133/52
--- NOTE | 2017-05-22 02:07 | NUR ---
2000) REC'D.IN BED FAMILY AT BEDSIDE.DRSG. DRY AND INTACT TO LEFT HIP.FOOT PINK AND WARM PEDAL PULSE PRESENT WIGGLES TOES ON COMMAND AND FLEXES ANKLE DENIES CALF PAIN OR TENDERNESS.WILL CONTINUE TO MONITOR FOR ANY CHGES. IN NEUROVASCULAR STATUS AND FOLLOW CURRENT PLAN OF CARE
[2017-05-22 04:00] VITALS: BP 144/48
[2017-05-22 05:14] LABS: BASOPHILS 0 % (0-2); EOSINOPHILS 2.2 % (0-7); HEMATOCRIT 35.3 % (36.0-48.0); IMMATURE GRANULOCYTES 0.8 % (0-5); LYMPHOCYTES 16.8 % (15-50); MCH 27.7 pg (26.0-34.0); MCHC 31.2 g/dL (31.0-37.0); MCV 88.9 fL (80.0-100.0); MEAN PLATELET VOLUME 9.8 fL (7.4-10.4); MONOCYTES 9.5 % (2-11); NEUTROPHILS 70.7 % (40-80); PLATELET COUNT 237 10x3/uL (130-400); RBC 3.97 10x6/uL (4.00-5.40); RDW 13.8 % (11.5-14.5)
[2017-05-22 05:23] LABS: CALC OSMOLALITY 281 mosm/kg (275-300); CALCIUM 8.4 mg/dL (8.5-10.1); CARBON DIOXIDE 39.8 mmol/L (21.0-32.0); CHLORIDE - SERUM 97 mmol/L (98-107); CREATININE - SERUM 0.6 mg/dL (0.6-1.3); GLUCOSE 73 mg/dL (74-106); POTASSIUM - SERUM 3.7 mmol/L (3.5-5.1); SODIUM 141 mmol/L (136-145); eGFR NON AFRICAN AMERICAN > 90 mL/min (90-120)
[2017-05-22 05:48] LABS: UREA NITROGEN 19 mg/dL (7-18)
--- NOTE | 2017-05-22 07:00 | NUR ---
REPORT RECIEVED ASSUMED CARE. PATIENT IN BED WITH IV INTACT. NO COMPLAINTS AT THIS TIME. CALL LIGHT WITHIN REACH.
[2017-05-22] MEDS ORDERED: BROVANA15 MCG/2 M INH (07:06)
[2017-05-22] MEDS ORDERED: ULTRAM50 MG PO (07:12)
[2017-05-22] MEDS ORDERED: PREDNISONE10 MG (07:12)
[2017-05-22 08:45] VITALS: BP 160/64
--- NOTE | 2017-05-22 12:45 | NUR ---
PATIENT IN BED WITH NO COMPLAINTS AT THIS TIME. IV INTACT. CALL LIGHT WITHIN REACH.
[2017-05-22 16:45] VITALS: BP 185/56
--- NOTE | 2017-05-22 17:53 | NUR ---
PATIENT IN BED WITH IV INTACT. SITTING UP IN BED EATING. NO COMPLAINTS. CALL LIGHT WITHIN REACH.
--- NOTE | 2017-05-22 19:15 | NUR ---
RECIEVED SHIFT REPORT. PT IS LYING IN BED. ALERT AND ORIENTED AND ABLE TO VERBALIZE NEEDS. IV IS PATENT AND SALINE LOC AT THIS TIME. O2 @ 3 PER NASAL CANNULA. SCD'S ON. PT DENIES ANY PAIN AT THIS TIME. PT IS AMBULATORY WITH ASSISTANCE. DRESSING TO LEFT HIP C/D/I. NO NEEDS ARE VERBALIZED AT THIS TIME. WILL CONTINUE TO MONITOR. SIDE RAILS ARE UP X 2. BED IS IN LOWEST POSITION. BED ALARM IS ON FOR SAFETY. CALL LIGHT IS WITHIN REACH.
[2017-05-22 20:00] VITALS: BP 106/46
--- NOTE | 2017-05-22 20:10 | NUR ---
SHIFT ASSESSMENT COMPLETED. PT STATUS REMAINS UNCHANGED FROM PREVIOUS. NO NEEDS ARE VOICED. WILL MONITOR. SIDE RAILS X 2. BED LOW. BED ALARM ON. CALL LIGHT IN REACH.
[2017-05-23] VITALS: BP 114/55
[2017-05-23 09:36] VITALS: BP 150/56
--- NOTE | 2017-05-23 10:42 | NUR ---
DURING MED PASS NOTED PT WAS SEVERELY SOB. RT PAGED. RT ROCÍO, AT BEDSIDE. EXPIRATORY WHEEZES AUSCULTAED AT ALL LOBES. PT IS ANXIOUS. ASKED PT IF SHE TAKES ANY "WATER PILLS" LIKE LASIX OR BUMEX. STATES SHE TAKES SOMETHING LIKE THAT. CURRENT O2 SAT 95% ON 3.5L. SCHEDULED BREATHING TX ADMINISTERED PER RT ROÍCO. PIV SITED TO L FA. X3 ATTEMPTS. 22GUAGE. PRN LASIX ORDERED FOR BLOOD ADMINISTERED. CONT SPO2 APPLIED. CURRENT SPO2 93. BED LOW, CALL LIGHT IN REACH, WILL CONTINUE TO MONITOR
--- NOTE | 2017-05-23 12:17 | NUR ---
MANAGING DIRECTOR ATLAS NOTE-SITTING UP IN RECLINER AT PRESENT. OXYGEN AT 4L PER NC. LUNGS DIMINISHED BIALT. PT STATES NO COMPLAINTS OF SOB-CALL LIGHT IN REACH
--- NOTE | 2017-05-23 13:19 | NUR ---
NUTRITION F/U CHART REVIEWED, PT VISIT. PT TOLERATING REG DIET, 50 TO 75% INTAKE RECENT MEALS. WILL CONTINUE TO PROVIDE DIET, MONITOR INTAKE. RD FOLLOWING
[2017-05-23 13:21] VITALS: BP 162/59
[2017-05-23 17:05] VITALS: BP 135/61
[2017-05-23 23:07] VITALS: BP 126/75
[2017-05-24 05:00] VITALS: BP 125/52
--- NOTE | 2017-05-24 05:45 | NUR ---
PT RESTING IN BED WITH NO DISTRESS. RESPIRATIONS EVEN AND UNLABORED. SIDE RAILS X 2. BED LOW. BED ALARM ON. CALL LIGHT IN REACH.
[2017-05-24 08:33] VITALS: BP 153/66
--- NOTE | 2017-05-24 09:55 | NUR ---
Patient being discharged to the [facility] to a skilled bed via their van. Abdelrahman Sheffield (daughter) notified.
--- NOTE | 2017-05-24 11:18 | NUR ---
PT ON 3 1/2 L OF O2, BEING DC TO THE [facility], DAUGHTER BAKARI SIGNED PAPERWORK, PT BEING PICKED UP BY [facility] CONDU[facility]/BRAKEMAN
--- NOTE | 2017-06-26 07:19 | DS ---
PATIENT:SAIDA BOLIVAR :42 MEDICAL RECORD: [id number] DISCHARGE SUMMARY ADMISSION DATE: 05/13/17 DISCHARGE DATE: 05/24/17 DATE OF ADMISSION: 05/13/2017. DATE OF DISCHARGE: 05/24/2017. CONDITION ON DISCHARGE: Improved. ADMITTING DIAGNOSIS: Chronic obstructive pulmonary disease exacerbation. DISCHARGE DIAGNOSES: Shortness of breath, acute on chronic respiratory failure with hypoxemia, displaced intertrochanteric fracture of the left hip, chronic obstructive pulmonary disease, hypertension, arteriosclerotic heart disease, depression, anxiety. HOSPITAL COURSE: A 76-year-old female with longstanding history of having COPD. She had presented to the Emergency Room complaining of continued shortness of breath, cough and congestion worsening over the past several days. She has had a low-grade fever. She was tachypneic as well as tachycardic. She was in no acute distress. Initially her proBNP was 472. She had a white count 11.4, hemoglobin 10.6, hematocrit was 35.2, and platelets were 250. Sodium 137, potassium 4.2, chloride was 95, CO2 was 35.5, BUN 13, creatinine 0.6. The patient was admitted, placed on IV antibiotics as well as pulmonary consultation. She had an echocardiogram. Echocardiogram revealed normal left ventricular size and function, ejection fraction of 60%, mild tricuspid regurgitation. The patient was also seen by Dr. Mooney. Apparently, the patient had fallen 2 weeks prior to her admission, she had not been ambulatory. She lived with her daughter. X-ray showed a closed intertrochanteric fracture of the left hip. The patient was taken to the operating room on 05/16/[address] Mooney for closed intertrochanteric fracture of the left hip. She underwent a left hip intramedullary nailing. Her condition slowly began to improve. Over the following days, physical therapy was initiated. The patient had slow progress. It was felt the patient should be transferred to a alf rehabilitation facility. On the , she was afebrile. His vital signs were stable. On the , her white count was 6, hemoglobin 11, hematocrit was 35.3, and her platelets were 237. She had a sodium of 141, potassium 3.7, chloride was 97, BUN was 19, creatinine was 0.6. The patient was therefore discharged. DISCHARGE MEDICATIONS: She was discharged on Brovana 15 mcg inhaler b.i.d., Paxil 20 mg once a day, clonidine 0.1 mg p.o. b.i.d., Procardia 60 mg daily, aspirin 325 mg daily, Fosamax 70 mg weekly, DuoNeb 3 mL updrafts q.i.d., Advair HFA 230/21 two puffs b.i.d., Plavix 75 mg daily. Prednisone 10 mg, 40 mg p.o. daily for 3 days, 30 mg p.o. daily for 3 days, 20 mg p.o. daily for 3 days, 10 mg p.o. daily for 3 days. Tramadol 50 mg every 6 hours p.r.n. severe pain. Home health will be consulted for physical therapy as well as dressing changes, regular diet, a walker. She will follow up with ortho in 3 weeks, me in 2 weeks. TRANSINT:[id number] Voice Confirmation ID: [id number] DOCUMENT ID: [id number] DISCHARGE SUMMARY REPORT [id number] SAIDA BOLIVAR JAMES MD at 0719 CC: [id number] DICTATION DATE: 06/24/17 1448 SKIAGRAPHER: 06/25/17 1307 DIS IN 05/24/17 [place] [id number] [facility] [place] [address]
== END 2017-05-24 11:40 | DRG 981 ==
LOC: D.ER 20:59 → D.MS 23:11 → D.M2 23:11 → D.ICU 23:11 → D.MS 05-17 21:53
PROVIDERS: Emergency Medicine; Family Medicine; Internal Medicine Pulmonary Disease; ADMIT Family Medicine
PROC: 5A09357 Assistance with Respiratory Ventilation, Less than 24 Consecutive Hours, Continuous Positive Airway Pressure (ICD-10-PCS; principal; 2017-05-14)
PROC: 0QH736Z Insertion of Intramedullary Internal Fixation Device into Left Upper Femur, Percutaneous Approach (ICD-10-PCS; 2017-05-16)
DX: J96.21 Acute and chronic respiratory failure with hypoxia (principal); S72.142A Displaced intertrochanteric fracture of left femur, initial encounter for closed fracture; J44.1 Chronic obstructive pulmonary disease with (acute) exacerbation; E87.2 Acidosis; J96.22 Acute and chronic respiratory failure with hypercapnia; I48.91 Unspecified atrial fibrillation; I10 Essential (primary) hypertension; I25.10 Atherosclerotic heart disease of native coronary artery without angina pectoris; Z95.5 Presence of coronary angioplasty implant and graft; Z87.891 Personal history of nicotine dependence; I27.20 Pulmonary hypertension, unspecified; W19.XXXA Unspecified fall, initial encounter; M81.0 Age-related osteoporosis without current pathological fracture; F32.9 Major depressive disorder, single episode, unspecified; F41.9 Anxiety disorder, unspecified; Z99.81 Dependence on supplemental oxygen

== ENCOUNTER 2017-06-16 19:57 | Emergency (ER) | payer MEDICARE ==
[2017-05-14 12:36] VITALS: BMI 17.9
[~2017-06-16 19:57] MED LIST changes: +BROVANA15 MCG/2 M INH; +PREDNISONE10 MG; +ULTRAM50 MG PO
[2017-06-16 20:25] LABS: BASOPHILS 0.2 % (0-2); EOSINOPHILS 0.3 % (0-7); HEMATOCRIT 36.5 % (36.0-48.0); HEMOGLOBIN 11.1 g/dL (12-16); IMMATURE GRANULOCYTES 0.2 % (0-5); MCH 27.9 pg (26.0-34.0); MCHC 30.4 g/dL (31.0-37.0); MCV 91.7 fL (80.0-100.0); MEAN PLATELET VOLUME 9.3 fL (7.4-10.4); MONOCYTES 7.6 % (2-11); NEUTROPHILS 83.7 % (40-80); PLATELET COUNT 237 10x3/uL (130-400); RBC 3.98 10x6/uL (4.00-5.40); RDW 13.8 % (11.5-14.5); WBC 6.2 10x3/uL (4.8-10.8)
[2017-06-16 20:39] LABS: ALBUMIN 4.2 g/dL (3.4-5.0); ALKALINE PHOSPHATASE 149 U/L (46-116); ALT (SGPT) 51 U/L (10-68); CALC OSMOLALITY 274 mosm/kg (275-300); CALCIUM 9.3 mg/dL (8.5-10.1); CARBON DIOXIDE 39.4 mmol/L (21.0-32.0); CHLORIDE - SERUM 94 mmol/L (98-107); CREATININE - SERUM 0.6 mg/dL (0.6-1.3); POTASSIUM - SERUM 4.1 mmol/L (3.5-5.1); PROTEIN - SERUM 7.7 g/dL (6.4-8.2); SODIUM 137 mmol/L (136-145); UREA NITROGEN 9 mg/dL (7-18); eGFR NON AFRICAN AMERICAN > 90 mL/min (90-120)
[2017-06-16 20:40] LABS: GLUCOSE 131 mg/dL (74-106)
[2017-06-16 21:00] LABS: CREATINE KINASE 556 UL (21-215); LIPASE 111 U/L (73-393); PRO BNP 1333 pg/mL (0-450); TROPONIN-I 0.025 ng/mL (0.000-0.060)
[2017-06-16 21:23] LABS: CKMB 11.1 U/L (0.0-3.6)
== END 2017-06-16 21:37 | disposition home or self-care (01) ==
LOC: D.ER 19:57
PROVIDERS: Family Medicine
DX: J44.1 Chronic obstructive pulmonary disease with (acute) exacerbation (principal); R06.00 Dyspnea, unspecified; I10 Essential (primary) hypertension